=== PATIENT | male | born 1995 | race Caucasian/White ===

== ENCOUNTER 2018-03-19 08:08 | Day surgery (SDC) | payer OTHER ==
[2018-03-19 08:50] LABS: ADD MAN DIFF? NO
[2018-03-19 08:54] LABS: BASOPHILS % 0.8 % (0.0-2.0); EOSINOPHILS # 0.1 10^3/ul (0.0-0.5); EOSINOPHILS % 1.5 % (0.0-7.0); HEMATOCRIT 44.1 % (42.0-52.0); HEMOGLOBIN 15.1 g/dl (14.0-18.0); LYMPHOCYTES # 2.3 10^3/ul (0.8-2.9); LYMPHOCYTES % 49.5 % (15.0-51.0); MEAN CORPUSCULAR HEMOGLOBIN 28.5 pg (29.0-33.0); MEAN CORPUSCULAR HGB CONC 34.2 g/dl (32.0-37.0); MEAN CORPUSCULAR VOLUME 83.4 fl (82.0-101.0); MEAN PLATELET VOLUME 11.9 fl (7.4-10.4); MONOCYTE # 0.4 10^3/ul (0.3-0.9); MONOCYTES % 9.3 % (0.0-11.0); NEUTROPHIL # 1.8 10^3/ul (1.6-7.5); NEUTROPHILS % 38.7 % (39.0-77.0); PLATELET COUNT 146 10^3/UL (140-415); RED BLOOD COUNT 5.29 10^6/ul (4.70-6.10); RED CELL DISTRIBUTION WIDTH 12.3 % (11.5-14.5)
[2018-03-19 08:54] LABS: WHITE BLOOD COUNT 4.7 10^3/ul (4.8-10.8)
[2018-03-19] MEDS ORDERED: PROPOFOL 20 ML (10:45)
[2018-03-19] MEDS ORDERED: MIDAZOLAM 1 MG/ML 2 ML INJ (10:46)
[2018-03-19] MEDS ORDERED: METOCLOPRAMIDE 10 MG INJ (10:46)
[2018-03-19] MEDS ORDERED: ONDANSETRON 4 MG INJ (10:46)
[2018-03-19] MEDS ORDERED: FENTAnyl 50 MCG/ML VIAL ×2 (10:46→11:03)
[2018-03-19] MEDS ORDERED: KETOROLAC 30 MG INJ (10:47)
[2018-03-19] MEDS ORDERED: DIPHENHYDRAMINE 50 MG INJ IV (11:00)
[2018-03-19] MEDS ORDERED: ONDANSETRON 4 MG INJ IV (11:00)
[2018-03-19] MEDS ORDERED: HYDROmorphONE 1 MG/5 ML IV SYRINGE IV ×3 (11:00)
[2018-03-19] MEDS ORDERED: OXYCODONE/ACETAMINOPHEN (5/325) TAB PO ×2 (11:00)
[2018-03-19] MEDS ORDERED: MEPERIDINE 25 MG INJ IV (11:00)
[2018-03-19] MEDS ORDERED: CEFAZOLIN 1 GM INJ (11:10)
[2018-03-19] MEDS: LIDOCAINE 1%/EPI (1:100,000) (MDV) 20 ML (11:14)
== END 2018-03-19 13:15 | disposition home or self-care (01) ==
LOC: SDS 08:08
DX: M67.431 Ganglion, right wrist (principal)
CPT/HCPCS: 25111; 85025; 88304